=== PATIENT | male | born 1975 | race Caucasian/White ===

== ENCOUNTER 2016-12-28 17:06 | Emergency (ER) | payer SELFPAY ==
[~2016-12-28 17:06] MED LIST: Sterile Water Irrigation 250 ML BOT ONE
[2016-12-28] MEDS ORDERED: Ondansetron ODT 4 MG TAB ONE (18:35)
[2016-12-28] MEDS ORDERED: Naproxen 500 MG TAB ONE (18:35)
[2016-12-28] MEDS ORDERED: Morphine Sulfate 2 MG/ML SYRINGE ONE (18:35)
--- NOTE | 2016-12-28 18:45 | RAD ---
THREE VIEWS RIGHT THUMB 12/28/16 HISTORY: Crushing injury right thumb. AP, lateral and oblique views right thumb is obtained. There is a comminuted fracture involving the middle and distal aspect of the distal phalanx first di git right hand. The fracture does not extend into the interphalangeal joint. IMPRESSION: Comminuted fracture involving the distal and mid portion distal phalanx first digit right hand. POS: [facility]
[2016-12-28] MEDS ORDERED: Cephalexin 500 MG CAP ONE (19:01)
== END 2016-12-28 19:15 | disposition home or self-care (01) ==
LOC: MADERS 17:06
DX: S62.521A Displaced fracture of distal phalanx of right thumb, initial encounter for closed fracture (principal); F17.210 Nicotine dependence, cigarettes, uncomplicated; W23.0XXA Caught, crushed, jammed, or pinched between moving objects, initial encounter
CPT/HCPCS: 96372; J2270; Q0162

== ENCOUNTER 2017-02-26 11:47 | Emergency (ER) | payer SELFPAY ==
[2017-02-26] MEDS ORDERED: Ketorolac Tromethamine 60 MG/2 ML VIAL ONE (12:36)
[2017-02-26] MEDS ORDERED: Clindamycin 150 MG CAP ONE (12:36)
[2017-02-26] MEDS ORDERED: Adacel (T-DAP) 0.5 ML VIAL ONE (12:41)
== END 2017-02-26 12:57 | disposition home or self-care (01) ==
LOC: MADERS 11:47
DX: L03.012 Cellulitis of left finger (principal); F17.210 Nicotine dependence, cigarettes, uncomplicated
CPT/HCPCS: 90471; 90715; 96372; J1885

== ENCOUNTER 2017-09-08 23:59 | Emergency (ER) | payer SELFPAY ==
[2017-09-09] MEDS ORDERED: Proparacaine 0.5% Opth 15 ML BOT ONE (00:22)
[2017-09-09] MEDS ORDERED: Tobramycin Sulfate 0.3% Ophth Susp 5 ml Bottle ONE (00:44)
== END 2017-09-09 00:55 | disposition home or self-care (01) ==
LOC: MADERS 23:59
DX: S05.02XA Injury of conjunctiva and corneal abrasion without foreign body, left eye, initial encounter (principal); F17.210 Nicotine dependence, cigarettes, uncomplicated; W25.XXXA Contact with sharp glass, initial encounter
CPT/HCPCS: 99283

== ENCOUNTER 2022-06-28 20:43 | Emergency (ER) | payer SELFPAY ==
[2022-06-28] MEDS ORDERED: Lidocaine 1%/Epinephrine 1:100K 10 ML VIAL ONE (21:05)
[2022-06-28] MEDS ORDERED: Bacitracin 1 PK ONE ×2 (21:32→21:54)
[2022-06-28] MEDS ORDERED: Cephalexin 500 MG CAP ONE (21:54)
[2022-06-28] MEDS ORDERED: Sulfameth/Trimethoprim DS 800-160mg TAB ONE (21:54)
== END 2022-06-28 22:00 | disposition home or self-care (01) ==
LOC: MADERS 20:43
DX: L03.116 Cellulitis of left lower limb (principal); L03.115 Cellulitis of right lower limb; F17.210 Nicotine dependence, cigarettes, uncomplicated
CPT/HCPCS: 10060; 87070; 87077; 87186; 87205

== ENCOUNTER 2022-07-05 15:01 | Emergency (ER) | payer SELFPAY | END 2022-07-05 16:13 | disposition home or self-care (01) | LOC: MADERS 15:01 | DX: L02.415 Cutaneous abscess of right lower limb (principal); F17.210 Nicotine dependence, cigarettes, uncomplicated | CPT/HCPCS: 99282 ==

== ENCOUNTER 2022-08-19 17:33 | Emergency (ER) | payer SELFPAY | END 2022-08-19 18:34 | disposition home or self-care (01) | LOC: MADERS 17:33 | DX: S00.81XA Abrasion of other part of head, initial encounter (principal); F17.210 Nicotine dependence, cigarettes, uncomplicated; W22.09XA Striking against other stationary object, initial encounter | CPT/HCPCS: 99283 ==